=== PATIENT | male | born 1935 | race Caucasian/White ===

== ENCOUNTER 2016-08-09 07:48 | Day surgery (SDC) | payer MEDICARE ==
--- NOTE | 2016-08-02 13:03 | HISTORY AND PHYSICAL E ---
History and Physical NAME: MANOLO HERNANDEZ : 1935 AGE: 81Y ADMITTED: 08/09/2016 ROOM: CHIEF COMPLAINT: Colon screening. HISTORY: Patient did have recent upper GI done in the following: His upper GI in 2011 showed small hiatus hernia with mild reflux, otherwise normal upper GI. His CBC again in 2012 showed white count 17, hemoglobin 14, hematocrit 40. At this time patient is for colon screening. GI history of adenoma polyps and diverticulosis. His primary is Dr. Beasley. PAST MEDICAL HISTORY: The patient was seen in 2010. His colon did show benign sigmoid polyps and diverticulosis. Past history of adenoma polyps and diverticulosis. PAST SURGICAL HISTORY: Unremarkable. ALLERGIES: Negative. MEDICATIONS: 1. Baby Aspirin. 2. Crestor. 3. Niaspan. 4. Aleve. 5. Fish oil. FAMILY HISTORY: His mom is alive. His dad passed, noted to have pneumonia and heart disease. REVIEW OF SYSTEMS: History of hypertension; otherwise, negative. PHYSICAL EXAMINATION: VITAL SIGNS: Blood pressure 130/80, pulse 80, respirations 20, temp 98. HEENT: Normal. NECK: Supple. LUNGS: Clear. ABDOMEN: Soft. NEUROLOGIC: Exam negative. REVIEW OF RECORD: As follows: Colonoscopy in 2010 shows hyperplastic polyp, rectum. Patient did have a history of diverticulosis. Patient did have another colonoscopy done in 2007 showing diverticulosis, sigmoid polyp, 3 mm, and this was tubular adenoma in 2007. The patient was seen in 2010. Colonoscopy showed no polyps. Sigmoid diverticulosis in 2010. CONCLUSIONS: 1. Colon screening. 2. History of sigmoid adenoma polyps back in 2007. 3. Diverticulosis. PLAN: Colonoscopy. DICTATING PHYSICIAN: CHET DIETRICH M.D. [id number] PHY#: [id number] ID: [id number] JOB#: [id number] ACCT: [id number] cc:CHET DIETRICH M.D., ROBERT M.D. >
[2016-08-09] MEDS ORDERED: GLYCOPYRROLATE INJ 0.4 MG/2 ML VIAL ONE (07:55)
[2016-08-09] MEDS ORDERED: ONDANSETRON HCL INJ/PF 4 MG/2 ML SDV ONE (07:55)
[2016-08-09] MEDS ORDERED: NALOXONE HCL INJ/PF 0.4 MG/1 ML SDV ONE (07:55)
[2016-08-09] MEDS ORDERED: LIDOCAINE 2% JELLY 30 ML TUBE ONE (07:55)
[2016-08-09] MEDS ORDERED: FENTANYL CITRATE INJ/PF 100 MCG/2 ML AMPUL ONE (07:56)
[2016-08-09] MEDS ORDERED: FLUMAZENIL INJ 0.5 MG/5 ML VIAL IV ONE (07:57)
[2016-08-09] MEDS ORDERED: EPINEPHRINE INJ 1 MG/10 ML DISP.SYRIN ONE (07:57)
[2016-08-09] MEDS ORDERED: GLUCAGON,HUMAN RECOMB 1 MG INJ ONE (07:57)
[2016-08-09] MEDS ORDERED: MIDAZOLAM 2 MG/2 ML INJ ONE (07:57)
[2016-08-09] MEDS ORDERED: ONDANSETRON HCL INJ/PF 4 MG/2 ML SDV IV ONE (08:23)
[2016-08-09] MEDS ORDERED: GLYCOPYRROLATE INJ 0.4 MG/2 ML VIAL IV ONE (08:25)
[2016-08-09] MEDS ORDERED: GLUCAGON,HUMAN RECOMB 1 MG INJ IV ONE (08:27)
[2016-08-09] MEDS ORDERED: MIDAZOLAM 2 MG/2 ML INJ IV ONE (08:28)
[2016-08-09] MEDS ORDERED: FENTANYL CITRATE INJ/PF 100 MCG/2 ML AMPUL IV ONE ×2 (08:30→08:32)
--- NOTE | 2016-08-10 07:18 | DISCHARGE SUMMARY E ---
Discharge Summary NAME: MANOLO HERNANDEZ : 1935 AGE: 81Y ADMITTED: 08/09/2016 DISCHARGED: 08/09/2016 HISTORY: Patient is an 81-year-old male who has remote history of polyps, underwent colon screening today. He has no evidence of malignancy. Diffuse diverticulosis, benign looking polyp rectosigmoid junction. DISCHARGE PLAN: 1. Soft low-residue diet for 3 days. 2. CBC. 3. Prostate specific antigen. 4. Awaiting biopsy results. 5. Hold aspirin for 3 days. 6. Patient needs followup colonoscopy after 5 years. FINAL DIAGNOSES: 1. Rectosigmoid junction polyp, 3 mm. 2. Diverticulosis, diffuse. DICTATING PHYSICIAN: CHET DIETRICH M.D. [id number] [facility]#: [id number] ID: [id number] JOB#: [id number] ACCT: [id number] cc:CHET DIETRICH M.D., ROBERT M.D. >
--- NOTE | 2016-08-10 08:24 | OPERATIVE REPORT E ---
Operative Report NAME: MANOLO HERNANDEZ : 1935 AGE: 81Y DATE OF SURGERY: 08/09/2016 ROOM: PREOPERATIVE DIAGNOSES: 1. COLON SCREENING. 2. DIVERTICULOSIS. POSTOPERATIVE DIAGNOSES: 1. DIFFUSE DIVERTICULOSIS. NO SIGN OF DIVERTICULITIS. 2. SMALL 3 MM SESSILE POLYP RECTOSIGMOID JUNCTION. OPERATION: Colonoscopy. SURGEON: CHET DIETRICH M.D. ANESTHESIA: Versed 2, fentanyl 50. TISSUE REMOVED OR ALTERED: Biopsy polyp rectosigmoid junction, sessile 2 to 3 cm size polyp benign adjacent to orifice of the diverticula in the rectosigmoid junction. PROCEDURE: Rectal exam; shows enlarged prostate. Sigmoid descending colon; diverticulosis, small sessile 2 mm polyp biopsy obtained. Descending colon; diverticulosis. Transverse colon; diverticulosis. Ascending colon; diverticulosis. Cecum; diverticulosis. Scope withdrawn cecum, ascending, transverse, descending, sigmoid all the way to the rectum. CONCLUSIONS: 1. Sigmoid descending colon diverticulosis. 2. Small polyp rectosigmoid junction, benign. Biopsy obtained. 3. Enlarged prostate. The patient tolerated the procedure well and was discharged to his room in stable condition. PLAN: Hold aspirin, nonsteroidal 3 days. Awaiting biopsy results. Soft, low residue diet. Baseline CBC and prostatic specific antigen. DICTATING PHYSICIAN: CHET DIETRICH M.D. [id number] PHY#: [id number] ID: [id number] JOB#: [id number] ACCT: [id number] cc:CHET DIETRICH M.D., ROBERT M.D. >
[2016-08-10 09:17] LABS: ABSOLUTE EOSINOPHILS # (AUTO) 0.1 10^3/uL (0.0-0.6); ABSOLUTE LYMPHOCYTES (AUTO) 1.2 10^3/uL (0.5-4.7); ABSOLUTE MONOCYTES (AUTO) 0.7 10^3/uL (0.1-1.4); ABSOLUTE NEUT (AUTO) 7.5 10^3/uL (1.7-8.2); BASOPHILS % (AUTO) 0.5 % (0-2); EOSINOPHILS % (AUTO) 0.7 % (0-6); HEMATOCRIT 43.8 % (37.9-51.0); HEMOGLOBIN 14.6 g/dL (13.5-17.0); LYMPHOCYTES % (AUTO) 12.4 % (13-45); MEAN CORPUSCULAR HEMOGLOBIN 30.5 pg (27.0-33.4); MEAN CORPUSCULAR HGB CONC 33.4 g/dL (32.0-36.0); MEAN CORPUSCULAR VOLUME 91 fl (80-97); MONOCYTES % (AUTO) 7.4 % (3-13); RED CELL DISTRIBUTION WIDTH 13.9 % (11.5-14.0); WHITE BLOOD COUNT 9.5 10^3/uL (4.0-10.5)
[2016-08-11 13:49] VITALS: BP 112/42
== END 2016-08-09 10:00 | disposition home or self-care (01) ==
LOC: END 07:48
PROVIDERS: ATTEND Specialist
PROC: 0DBN8ZX Excision of Sigmoid Colon, Via Natural or Artificial Opening Endoscopic, Diagnostic (ICD-10-PCS; principal; 2016-08-09 08:00)
DX: D12.7 Benign neoplasm of rectosigmoid junction (principal); K57.30 Diverticulosis of large intestine without perforation or abscess without bleeding; N40.0 Benign prostatic hyperplasia without lower urinary tract symptoms; Z79.82 Long term (current) use of aspirin; Z79.899 Other long term (current) drug therapy; Z86.79 Personal history of other diseases of the circulatory system
CPT/HCPCS: 45380; 36415; 84153; 85025; 88305 ×2; J2250; J3010; J1610; J2405; J0171; J2310; J3490

== ENCOUNTER 2018-03-15 13:24 | Emergency (ER) | payer MEDICARE ==
--- NOTE | 2018-03-15 14:40 | ER Document Report ---
ED General - General Chief Complaint: Elbow Injury Stated Complaint: FALL/RIGHT ARM PAIN Time Seen by Provider: 03/15/18 14:07 Mode of Arrival: Ambulatory Information source: Patient Notes: 82-year-old male presented to ED for complaint of right elbow forearm pain. He states he fell off a ladder about 5 or 6 days ago landing on his arm. Patient states he was adjusting the [place] decorations when the metal ladder collapsed underneath of him causing him to fall. States he has not been to the doctor but the pain is continued to increase. He states that he did not want to come to the doctor but his made him come to the hospital. He states he also has a cough and cold and wants that checked out also. TRAVEL OUTSIDE OF THE [place] IN LAST 30 DAYS: No - HPI Onset: Last week Onset/Duration: Persistent Quality of pain: Achy Severity: Mild Pain Level: 1 Associated symptoms: Nonproductive cough, Other - Right elbow swelling bruising and tenderness Exacerbated by: Movement Relieved by: Denies Similar symptoms previously: Yes Recently seen / treated by doctor: No - Related Data Allergies/Adverse Reactions: No Known Allergies Allergy (Verified 08/07/16 14:49) Past Medical History - General Information source: Patient - Social History Smoking Status: Former Smoker Frequency of alcohol use: Social Drug Abuse: None Lives with: Family Family History: Reviewed & Not Pertinent Patient has suicidal ideation: No Patient has homicidal ideation: No - Past Medical History Cardiac Medical History: Reports: Hx Hypertension Pulmonary Medical History: Reports: None EENT Medical History: Reports: None Neurological Medical History: Reports: None Endocrine Medical History: Reports: Hx Diabetes Mellitus Type 2 - prediabetic Renal/ Medical History: Reports: None Malignancy Medical History: Reports Hx Skin Cancer GI Medical History: Reports: Hx Colonoscopy Musculoskeletal Medical History: Reports Hx Musculoskeletal Deformity - Trigger finger, Reports Hx Musculoskeletal Trauma - Fractured arm Skin Medical History: Reports None Psychiatric Medical History: Reports: None Traumatic Medical History: Reports: Hx Fractures - Arm Infectious Medical History: Reports: None Past Surgical History: Reports: Other - Skin cancer removed - Immunizations Hx Diphtheria, Pertussis, Tetanus Vaccination: Yes Hx Pneumococcal Vaccination: 12/25/15 Review of Systems - Review of Systems Constitutional: No symptoms reported EENT: Nose congestion, Nose discharge, Sinus pressure, Sinus discharge Cardiovascular: No symptoms reported Respiratory: Cough Gastrointestinal: No symptoms reported Genitourinary: No symptoms reported Male Genitourinary: No symptoms reported Musculoskeletal: Other Skin: No symptoms reported Hematologic/Lymphatic: No symptoms reported Neurological/Psychological: No symptoms reported -: Yes All other systems reviewed and negative Physical Exam - Vital signs Vitals: Temp Pulse Resp BP Pulse Ox 97.5 F 98 20 135/65 H 93 03/15/18 13:29 03/15/18 13:29 03/15/18 13:29 03/15/18 13:29 03/15/18 13:29 Interpretation: Normal - General General appearance: Appears well, Alert - HEENT Head: Normocephalic, Atraumatic Eyes: Normal Pupils: PERRL Ears: Normal External canal: Normal Tympanic membrane: Normal Sinus: Normal Nasal: Purulent discharge, Swelling Mouth/Lips: Normal Mucous membranes: Normal Pharynx: Post nasal drainage Neck: Normal - Respiratory Respiratory status: No respiratory distress Chest status: Nontender Breath sounds: Normal, Nonproductive cough, Rales Chest palpation: Normal - Cardiovascular Rhythm: Regular Heart sounds: Normal auscultation Murmur: No - Abdominal Inspection: Normal Distension: No distension Bowel sounds: Normal Tenderness: Nontender Organomegaly: No organomegaly - Back Back: Normal, Nontender - Extremities General upper extremity: Normal ROM, Normal temperature General lower extremity: Normal inspection, Nontender, Normal color, Normal ROM, Normal temperature, Normal weight bearing. No: Bhavesh's sign Arm: Tender, Ecchymosis. No: Abrasion, Deformity, Instability, Laceration Elbow: Tender, Ecchymosis. No: Abrasion, Deformity, Dislocation, Instability, Joint effusion, Laceration, Limited ROM, Swollen bursa Forearm: Tender, Ecchymosis. No: Abrasion, Deformity, Instability, Laceration - Neurological Neuro grossly intact: Yes Cognition: Normal Orientation: AAOx4 Maribel Coma Scale Eye Opening: Spontaneous Maribel Coma Scale Verbal: Oriented Vance Coma Scale Motor: Obeys Commands Vance Coma Scale Total: 15 Speech: Normal Motor strength normal: LUE, RUE, LLE, RLE Sensory: Normal - Psychological Associated symptoms: Normal affect, Normal mood - Skin Skin Temperature: Warm Skin Moisture: Dry Skin Color: Normal Course - Re-evaluation Re-evalutation: 03/15/18 16:38 Chest x-ray and arm x-rays are negative. Patient was given a written report of the x-rays. Patient was instructed to follow-up with his primary doctor for his upper respiratory infection cough and congestion. Patient was instructed that the x-rays to the arm are negative time and Tylenol or Motrin for his arm pain. Patient verbalized understanding and agreement with treatment plan. - Vital Signs Vital signs: Temp Pulse Resp BP Pulse Ox 98.6 F 95 17 136/66 H 97 03/15/18 15:40 03/15/18 15:40 03/15/18 15:40 03/15/18 15:40 03/15/18 15:40 - Diagnostic Test Radiology reviewed: Image reviewed, Reports reviewed Discharge - Discharge Clinical Impression: Contusion of right arm Qualifiers: Encounter type: initial encounter Qualified Code(s): S40.021A - Contusion of right upper arm, initial encounter URI (upper respiratory infection) Qualifiers: URI type: unspecified URI Qualified Code(s): J06.9 - Acute upper respiratory infection, unspecified Disposition: HOME, SELF-CARE Additional Instructions: UPPER RESPIRATORY ILLNESS: You have a viral infection of the respiratory passages -- a "cold." This common infection causes nasal congestion, drainage, and often sore throat and cough. It is highly contagious. The disease usually lasts about 10 to 14 days. There is no "cure" for the viral infection -- it must run its course. If there is a complication, such as bacterial infection in the nose, sinuses, middle ear, or bronchial tubes, antibiotics may be required. The antibiotics won't affect the virus. Drink plenty of fluids. A humidifier may help. An expectorant medication or decongestant may make you more comfortable. Use acetaminophen or ibuprofen for fever or aches. See the doctor if fever persists over two days, if there is any significant worsening of your symptoms, or if you simply fail to improve as expected. CONTUSION: Your injury has resulted in a contusion -- a crushing of the deep tissues. No injury to important structures was detected during the physician's exam. Contusions vary in the amount of pain they cause, and in the length of time required for healing. Typically, the area will become bruised, and will remain painful to touch for two or three weeks. However, most patients are back to working and playing within a few days. After the initial period of rest and cold-packs, your symptoms (together with the doctor's recommendations) will determine how rapidly you can get back to full activity. Usually this means "do what feels okay, but don't do things that hurt." If re-examination was recommended, it's important to follow up as instructed. Call the doctor or return any time if pain increases, if swelling becomes severe, if you develop numbness or weakness in an injured extremity, or if any other alarming symptoms occur. USE OF TYLENOL (ACETAMINOPHEN): Acetaminophen may be taken for pain relief or fever control. It's much safer than aspirin, offering a wider range of "safe" dosages. It is safe during . Some brand names are Tylenol, Panadol, Datril, Anacin 3, Tempra, and Liquiprin. Acetaminophen can be repeated every four hours. The following are maximum recommended dosages: WEIGHT Dose Drops Elixir Chewable(80mg) (LBS.) drprs=droppers tsp=teaspoon 6 40 mg 0.4 ml (1/2) 6-11 80 mg 0.8 ml (full) tsp 1 tab 12-16 120 mg 1 1/2 drprs 3/4 tsp 1 1/2 tabs 17-23 160 mg 2 drprs 1 tsp 2 tabs 24-30 240 mg 3 drprs 1 1/2 tsp 3 tabs 30-35 320 mg 2 tsp 4 tabs 36-41 360 mg 2 1/4 tsp 4 1/2 tabs 42-47 400 mg 2 1/2 tsp 5 tabs 48-53 480 mg 3 tsp 6 tabs 54-59 520 mg 3 1/4 tsp 6 1/2 tabs 60-64 560 mg 3 1/2 tsp 7 tabs 65-70 600 mg 3 3/4 tsp 7 1/2 tabs 71-76 640 mg 4 tsp 8 tabs 77-82 720 mg 4 1/2 tsp 9 tabs 83-88 800 mg 5 tsp 10 tabs >89 pounds or adults 650 mg to 900 mg Acetaminophen can be repeated every four hours. Maximum dose not to exceed 4000 mg a day. These maximum recommended dosages are slightly higher than the dosages written on the product container, but these dosages are very safe and below the toxic dosage for acetaminophen. ICE PACKS: Apply ice packs frequently against the painful area. Many different schedules are recommended, such as "20 minutes on, 20 minutes off" or "one hour ice, two hours rest." If you need to work, you may need to go longer between ice treatments. You should plan to have the area ice packed AT LEAST one fourth of the time. The ice should be applied over the wrap, tape, or splint, or over a layer of cloth -- not directly against the skin. Some ice bags have a built-in cloth and can be put directly on the skin. COUGH-SUPPRESSANT & EXPECTORANT MEDICATION: You are to use a cough medication as needed for relief of symptoms. This medicine is a combination of an expectorant (to make the mucous thinner and more easily "coughed up") and a cough suppressant (to reduce the frequency of coughing). The cough-suppressant medicine is related to narcotics. You may experience mild nausea and sleepiness. Some patients who are very sensitive to narcotics may have stomach pain from this medicine. Taking the medicine with food reduces these side effects. Do not drive or work with machinery until you know how this medicine affects you. The expectorant should have no side effects. Iodine-containing exp ectorants (such as organidin) should not be taken by persons with active thyroid disease unless approved by your doctor. Call the doctor if you develop shortness of breath, hives, rash, itching, lightheadedness, or severe nausea and vomiting. Chloraseptic spray can help with your sore throat, Flonase nasal spray can help with your postnasal drip and sinus drainage. Use salt and soda solution gargles to help remove the postnasal drip from your throat that is causing your cough. Salt and soda solution 1 quart of water 1 tablespoon of salt 1 teaspoon of baking soda Mixed 3 ingredients together and boil for 1 minute Placed in a covered quart jar Use 1/2 ounce of cold solution to gargle 3 times a day FOLLOW-UP CARE: If you have been referred to a physician for follow-up care, call the [facility] office for an appointment as you were instructed or within the next two days. If you experience worsening or a significant change in your symptoms, notify the physician immediately or return to the Emergency Department at any time for re-evaluation. Forms: Elevated Blood Pressure Referrals: PAM NICHOLSON MD [Primary Care Provider] - Follow up as needed
--- NOTE | 2018-03-15 15:00 | RADIOLOGY REPORT (SQ) ---
EXAM DESCRIPTION: CHEST 2 VIEWS COMPLETED DATE/TIME: 03/15/2018 2:43 pm REASON FOR STUDY: cough congestion COMPARISON: None. EXAM PARAMETERS: NUMBER OF VIEWS: two views TECHNIQUE: Digital Frontal and Lateral radiographic views of the chest acquired. RADIATION DOSE: NA LIMITATIONS: none FINDINGS: LUNGS AND PLEURA: No opacities, masses or pneumothorax. No pleural effusion. MEDIASTINUM AND HILAR STRUCTURES: No masses or contour abnormalities. HEART AND VASCULAR STRUCTURES: Heart normal size. No evidence for failure. BONES: No acute findings. HARDWARE: None in the chest. OTHER: No other significant finding. IMPRESSION: NO ACUTE RADIOGRAPHIC FINDING IN THE CHEST. TECHNICAL DOCUMENTATION: JOB ID: [id number] [employer]- All Rights Reserved Reading location - IP/workstation name: [email or web address]
--- NOTE | 2018-03-15 15:01 | RADIOLOGY REPORT (SQ) ---
EXAM DESCRIPTION: FOREARM RIGHT COMPLETED DATE/TIME: 03/15/2018 2:43 pm REASON FOR STUDY: pain and injury fall, injury, bruising over the medial forearm COMPARISON: None. NUMBER OF VIEWS: Two views. TECHNIQUE: Two radiographic images acquired of the right forearm, including elbow and wrist in at le ast one projection. LIMITATIONS: None. FINDINGS: MINERALIZATION: Normal. BONES: No acute fracture. No worrisome bone lesions. SOFT TISSUES: Medial forearm soft tissue swelling. No radiopaque foreign body or soft tissue gas OTHER: No other significant finding. IMPRESSION: Soft tissue swelling. No acute fracture TECHNICAL DOCUMENTATION: JOB ID: [id number] [employer]- All Rights Reserved Reading location - IP/workstation name: [email or web address]
--- NOTE | 2018-03-15 15:02 | RADIOLOGY REPORT (SQ) ---
EXAM DESCRIPTION: HUMERUS RIGHT COMPLETED DATE/TIME: 03/15/2018 2:43 pm REASON FOR STUDY: pain and injury fall, injury, bruising medial right arm COMPARISON: Right forearm films same date NUMBER OF VIEWS: Two views. TECHNIQUE: Two radiographic images were acquired of the right humerus to include elbow and shoulder in at least one projection. LIMITATIONS: None. FINDINGS: MINERALIZATION: Normal. BONES: No acute fracture or dislocation. No worrisome bone lesions. SOFT TISSUES: No obvious swelling or foreign body. OTHER: No other significant finding. IMPRESSION: NEGATIVE STUDY OF THE RIGHT HUMERUS. NO RADIOGRAPHIC EVIDENCE OF ACUTE INJURY. TECHNICAL DOCUMENTATION: JOB ID: [id number] [employer]- All Rights Reserved Reading location - IP/workstation name: [email or web address]
[2018-03-15 15:42] VITALS: BP 136/66
== END 2018-03-15 15:42 | disposition home or self-care (01) ==
LOC: ER 13:24
DX: S40.021A Contusion of right upper arm, initial encounter (principal); J06.9 Acute upper respiratory infection, unspecified; M79.631 Pain in right forearm; R05 Cough; W11.XXXA Fall on and from ladder, initial encounter; M79.89 Other specified soft tissue disorders; Z87.891 Personal history of nicotine dependence; I10 Essential (primary) hypertension; R73.03 Prediabetes
CPT/HCPCS: 71046; 99283